=== PATIENT | female | born 1990 | race American Indian/Alaskan Native ===

== ENCOUNTER 2020-07-20 09:47 | Outpatient (CLI) | payer MEDICAID ==
[2020-07-20 12:54] VITALS: BP 114/55
== END 2020-07-20 13:09 | disposition home or self-care (01) ==
LOC: LAB 09:47 → APU 12:44 → LAB 13:09
PROVIDERS: ATTEND Obstetrics & Gynecology
DX: O26.893 Other specified pregnancy related conditions, third trimester (principal); Z67.41 Type O blood, Rh negative; Z3A.28 28 weeks gestation of pregnancy
CPT/HCPCS: 86850; 86900; 86901; 96372; J2790